=== PATIENT | male | born 2000 | race Caucasian/White ===

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

== ENCOUNTER 2020-01-03 16:05 | Emergency (ER) | payer MEDICAID ==
[~2020-01-03] VITALS: Ht 188 cm; Wt 78.2 kg
[2020-01-03 16:20] VITALS: BP 114/71
== END 2020-01-03 17:03 | disposition home or self-care (01) ==
LOC: ER 16:06
DX: S61.216D Laceration without foreign body of right little finger without damage to nail, subsequent encounter (principal); X58.XXXD Exposure to other specified factors, subsequent encounter
CPT/HCPCS: 99281

== ENCOUNTER 2020-11-30 10:24 | Emergency (ER) | payer MEDICAID ==
[~2020-11-30] VITALS: Ht 188 cm; Wt 78.2 kg
[2020-11-30 10:29] VITALS: BP 147/89
[2020-11-30] MEDS ORDERED: IBUP-1984 PO (11:22)
== END 2020-11-30 11:38 | disposition home or self-care (01) ==
LOC: ER 10:25
DX: M25.572 Pain in left ankle and joints of left foot (principal); Z79.899 Other long term (current) drug therapy
CPT/HCPCS: 73610; 99283

== ENCOUNTER 2021-03-15 22:19 | Emergency (ER) | payer MEDICAID ==
[~2021-03-15] VITALS: Ht 188 cm; Wt 93.8 kg
[2021-03-15 22:37] VITALS: BP 126/83
== END 2021-03-16 03:25 | disposition left against medical advice (07) ==
LOC: ER 22:20
DX: S61.215A Laceration without foreign body of left ring finger without damage to nail, initial encounter (principal); Z53.21 Procedure and treatment not carried out due to patient leaving prior to being seen by health care provider; X58.XXXA Exposure to other specified factors, initial encounter; Y93.89 Activity, other specified; Y92.89 Other specified places as the place of occurrence of the external cause; Y99.8 Other external cause status

== ENCOUNTER 2021-03-29 22:49 | Emergency (ER) | payer MEDICAID ==
[~2021-03-29] VITALS: Ht 185.4 cm; Wt 91.6 kg
[2021-03-29 23:04] VITALS: BP 118/78
== END 2021-03-30 00:09 | disposition home or self-care (01) ==
LOC: ER 22:50
DX: S61.012A Laceration without foreign body of left thumb without damage to nail, initial encounter (principal); M79.645 Pain in left finger(s); X58.XXXA Exposure to other specified factors, initial encounter; Y93.89 Activity, other specified; Y92.89 Other specified places as the place of occurrence of the external cause; Y99.8 Other external cause status
CPT/HCPCS: 12001; 12002; 99282; 99283

== ENCOUNTER 2021-08-12 17:54 | Emergency (ER) | payer MEDICAID | END 2021-08-12 18:19 | disposition left against medical advice (07) | LOC: ER 17:55 | DX: Z53.21 Procedure and treatment not carried out due to patient leaving prior to being seen by health care provider (principal) ==